=== PATIENT | male | born 1970 | race African-American/Black ===

== ENCOUNTER 2017-06-13 16:04 | Inpatient (IN) | payer MEDICAID, OTHER ==
[~2017-06-13] VITALS: Ht 170.2 cm; Wt 65.3 kg
[~2017-06-13 16:04] MED LIST: GLIP10TA10 PO; LISI10TA5 PO; METF500T4 PO; METO25TA6 PO; Phenytoin PO; RISP1 PO; TEMA15CA PO
[2017-06-13 18:28] LABS: BASOPHILS % 1.1 % (0.0-2.0); EOSINOPHILS % 2.6 % (0.0-5.0); HEMOGLOBIN. 11.3 g/dL (14.0-18.0); LYMPHOCYTES % 34.3 % (20.0-50.0); MEAN CORPUSCULAR HEMOGLOBIN 29.2 pg (28.0-32.0); MEAN CORPUSCULAR VOLUME 82.7 fL (80.0-94.0); MEAN PLATELET VOLUME 6.4 fl (7.4-10.4); MONOCYTES % 8.3 % (2.0-8.0); NEUTROPHILS % 53.7 % (40.0-76.0); PLATELET 275 x1000/uL (130-400); RED BLOOD CELL COUNT 3.87 mill/uL (4.7-6.1); RED CELL DISTRIBUTION WIDTH 14.2 % (11.6-14.6)
[2017-06-13 18:34] LABS: CHLORIDE 107 mEq/L (98-107)
[2017-06-13 18:43] LABS: CARBON DIOXIDE 25 mEq/L (21-32)
[2017-06-13 18:46] LABS: CARBAMAZEPINE < 0.5 ug/mL (4-12)
[2017-06-13] MEDS ORDERED: SODIUM CHLORIDE 0.9% 1,000 ML IV ONE (18:48)
[2017-06-13 18:51] LABS: PHENOBARBITAL < 2.1 ug/mL (15.0-40.0)
[2017-06-13 19:54] LABS: *AMPHETAMINES SCREEN URINE NEGATIVE (NEGATIVE); *BARBITURATES SCREEN URINE NEGATIVE (NEGATIVE); *BENZODIAZEPINES SCREEN URINE NEGATIVE (NEGATIVE); *COCAINE SCREEN URINE NEGATIVE (NEGATIVE); CANNABINOID URINE SCREEN NEGATIVE (NEGATIVE); METHADONE URINE SCREEN NEGATIVE (NEGATIVE); OPIATES URINE SCREEN NEGATIVE (NEGATIVE); PHENCYCLIDINE URINE SCREEN NEGATIVE (NEGATIVE)
[2017-06-13] MEDS ORDERED: IPRATROPIUM/ALBUTEROL 0.5-3(2.5)MG/3ML NEB INH PRN (20:15)
[2017-06-13] MEDS ORDERED: CLONIDINE 0.1MG TABLET PO PRN (20:15)
[2017-06-13] MEDS ORDERED: MAGNESIUM/ALUMINUM HYDROXIDE/SIMETHICONE 30ML UDC PO PRN (20:15)
[2017-06-13] MEDS ORDERED: ONDANSETRON HCL 4MG/2ML VIAL IV PRN (20:15)
[2017-06-13] MEDS ORDERED: ACETAMINOPHEN 325MG TABLET PO PRN (20:15)
[2017-06-13 21:00] VITALS: BP 134/91
[2017-06-13 21:15] VITALS: BP 134/91
[2017-06-13] MEDS: TEMAZEPAM 15MG CAPSULE PO SCH (22:27)
[2017-06-13] MEDS: RISPERIDONE 1MG TABLET PO SCH (22:27)
[2017-06-13] MEDS: SODIUM CHLORIDE 0.9% 1,000 ML IV SCH (23:13)
[2017-06-13] MEDS ORDERED: DEXTROSE 50% WATER 50ML SYRINGE IV PRN (23:15)
[2017-06-14] VITALS: BP 116/72
[2017-06-14 04:00] VITALS: BP 134/72
[2017-06-14] MEDS: BLOOD SUGAR DIAGNOSTIC STRIP TEST SCH ×4 (06:00→21:55)
[2017-06-14 06:16] LABS: BASOPHILS % 0.7 % (0.0-2.0); EOSINOPHILS % 2.9 % (0.0-5.0); HEMATOCRIT. 32.3 % (42.0-52.0); HEMOGLOBIN. 11.1 g/dL (14.0-18.0); LYMPHOCYTES % 38.1 % (20.0-50.0); MEAN CORPUSCULAR HEMOGLOBIN 29.1 pg (28.0-32.0); MEAN CORPUSCULAR VOLUME 84.3 fL (80.0-94.0); MEAN PLATELET VOLUME 6.9 fl (7.4-10.4); MONOCYTES % 11.2 % (2.0-8.0); NEUTROPHILS % 47.1 % (40.0-76.0); PLATELET 243 x1000/uL (130-400); RED BLOOD CELL COUNT 3.83 mill/uL (4.7-6.1); RED CELL DISTRIBUTION WIDTH 14.6 % (11.6-14.6)
[2017-06-14] MEDS: INSULIN LISPRO 100 UNITS/ML SUBCUT SCH ×4 (06:17→21:00)
[2017-06-14] MEDS: GLIPIZIDE 10MG TABLET PO SCH (06:32)
[2017-06-14 06:47] LABS: CARBON DIOXIDE 27 mEq/L (21-32); CHLORIDE 108 mEq/L (98-107)
[2017-06-14 06:59] LABS: CREATINE KINASE 193 IU/L (39-308); CREATINE KINASE MB FRACTION 1.4 ng/mL (0.5-3.6); HDL CHOLESTEROL 61 mg/dL (40-59); LDL CHOLESTEROL 110 mg/dL (5-100); TROPONIN I < 0.02 ng/mL (0.00-0.04)
[2017-06-14 08:00] VITALS: BP 105/63
[2017-06-14] MEDS: METOPROLOL TARTRATE 25MG TABLET PO SCH (09:52)
[2017-06-14] MEDS: METFORMIN HCL 500MG TABLET PO SCH ×2 (09:52→17:09)
[2017-06-14] MEDS: LISINOPRIL 10MG TABLET PO SCH (09:53)
[2017-06-14] MEDS: ENOXAPARIN 40MG/0.4ML SYR SUBCUT SCH (09:55)
[2017-06-14 12:00] VITALS: BP 111/66
[2017-06-14] MEDS: SODIUM CHLORIDE 0.9% 1,000 ML IV SCH (12:46)
[2017-06-14 16:00] VITALS: BP 103/63
[2017-06-14] MEDS: RISPERIDONE 1MG TABLET PO SCH (17:08)
[2017-06-14 20:00] VITALS: BP 101/59
[2017-06-14] MEDS: TEMAZEPAM 15MG CAPSULE PO SCH (21:53)
[2017-06-14] MEDS: ATORVASTATIN CALCIUM 20MG TABLET PO SCH (21:53)
[2017-06-15] VITALS: BP 102/68
[2017-06-15 04:00] VITALS: BP 111/70
[2017-06-15 06:36] LABS: BASOPHILS % 0.9 % (0.0-2.0); HEMATOCRIT. 30.6 % (42.0-52.0); HEMOGLOBIN. 10.7 g/dL (14.0-18.0); LYMPHOCYTES % 33.9 % (20.0-50.0); MEAN CORPUSCULAR VOLUME 82.7 fL (80.0-94.0); MEAN PLATELET VOLUME 6.8 fl (7.4-10.4); MONOCYTES % 10.4 % (2.0-8.0); NEUTROPHILS % 50.8 % (40.0-76.0); PLATELET 251 x1000/uL (130-400); RED CELL DISTRIBUTION WIDTH 14.3 % (11.6-14.6)
[2017-06-15] MEDS: BLOOD SUGAR DIAGNOSTIC STRIP TEST SCH ×4 (07:02→20:42)
[2017-06-15] MEDS: INSULIN LISPRO 100 UNITS/ML SUBCUT SCH ×4 (07:03→20:42)
[2017-06-15] MEDS: GLIPIZIDE 10MG TABLET PO SCH (07:05)
[2017-06-15 07:29] LABS: CARBON DIOXIDE 24 mEq/L (21-32); CHLORIDE 108 mEq/L (98-107)
[2017-06-15 08:00] VITALS: BP 113/53
[2017-06-15] MEDS: METOPROLOL TARTRATE 25MG TABLET PO SCH (08:41)
[2017-06-15] MEDS: METFORMIN HCL 500MG TABLET PO SCH ×2 (08:41→17:26)
[2017-06-15] MEDS: LISINOPRIL 10MG TABLET PO SCH (08:42)
[2017-06-15] MEDS: SODIUM CHLORIDE 0.9% 1,000 ML IV SCH (08:42)
[2017-06-15] MEDS: ENOXAPARIN 40MG/0.4ML SYR SUBCUT SCH (08:42)
[2017-06-15 12:00] VITALS: BP 104/71
[2017-06-15 16:00] VITALS: BP 111/70
[2017-06-15] MEDS: RISPERIDONE 1MG TABLET PO SCH (17:26)
[2017-06-15 19:33] VITALS: BP 109/73
[2017-06-15] MEDS: TEMAZEPAM 15MG CAPSULE PO SCH (20:39)
[2017-06-15] MEDS: ATORVASTATIN CALCIUM 20MG TABLET PO SCH (20:39)
[2017-06-16] VITALS: BP 115/80
[2017-06-16 04:26] VITALS: BP 119/80
[2017-06-16] MEDS: INSULIN LISPRO 100 UNITS/ML SUBCUT SCH ×3 (05:57→16:43)
[2017-06-16] MEDS: BLOOD SUGAR DIAGNOSTIC STRIP TEST SCH ×3 (05:57→16:26)
[2017-06-16] MEDS: GLIPIZIDE 10MG TABLET PO SCH (06:35)
[2017-06-16] MEDS: METFORMIN HCL 500MG TABLET PO SCH ×2 (06:35→16:26)
[2017-06-16 06:53] LABS: BASOPHILS % 0.8 % (0.0-2.0); EOSINOPHILS % 4.4 % (0.0-5.0); HEMOGLOBIN. 10.8 g/dL (14.0-18.0); LYMPHOCYTES % 32.5 % (20.0-50.0); MEAN CORPUSCULAR HEMOGLOBIN 28.8 pg (28.0-32.0); MEAN CORPUSCULAR VOLUME 82.8 fL (80.0-94.0); MEAN PLATELET VOLUME 6.7 fl (7.4-10.4); MONOCYTES % 11.5 % (2.0-8.0); NEUTROPHILS % 50.8 % (40.0-76.0); PLATELET 263 x1000/uL (130-400); RED BLOOD CELL COUNT 3.74 mill/uL (4.7-6.1); RED CELL DISTRIBUTION WIDTH 14.4 % (11.6-14.6)
[2017-06-16 08:00] VITALS: BP 111/65
[2017-06-16 08:25] LABS: CARBON DIOXIDE 27 mEq/L (21-32); CHLORIDE 107 mEq/L (98-107)
[2017-06-16] MEDS: LISINOPRIL 10MG TABLET PO SCH (08:56)
[2017-06-16] MEDS: METOPROLOL TARTRATE 25MG TABLET PO SCH (08:57)
[2017-06-16] MEDS: ENOXAPARIN 40MG/0.4ML SYR SUBCUT SCH (08:57)
[2017-06-16 12:00] VITALS: BP 114/70
[2017-06-16] MEDS ORDERED: PHEN100C4 PO (13:55)
[2017-06-16] MEDS ORDERED: ATOR10TA PO (13:58)
[2017-06-16 15:35] VITALS: BP 119/70
[2017-06-16 16:00] VITALS: BP 115/76
[2017-06-16] MEDS: RISPERIDONE 1MG TABLET PO SCH (16:26)
== END 2017-06-16 19:00 | disposition home or self-care (01) | DRG 58 ==
LOC: ER 16:04 → 5WST 19:14 → ENRESERV 19:26
PROVIDERS: ADMIT Internal Medicine; ATTEND Internal Medicine
DX: R26.0 Ataxic gait (principal); F20.9 Schizophrenia, unspecified; I10 Essential (primary) hypertension; G40.909 Epilepsy, unspecified, not intractable, without status epilepticus; D64.9 Anemia, unspecified; E11.9 Type 2 diabetes mellitus without complications; T42.0X5A Adverse effect of hydantoin derivatives, initial encounter; E78.00 Pure hypercholesterolemia, unspecified; Z86.73 Personal history of transient ischemic attack (TIA), and cerebral infarction without residual deficits; Z91.19 Patient's noncompliance with other medical treatment and regimen; Z79.899 Other long term (current) drug therapy; Y92.89 Other specified places as the place of occurrence of the external cause
CPT/HCPCS: 36415; 70450; 70551; 71010; 80048; 80053; 80061; 80156; 80165; 80184; 80185; 80305; 82550; 82553; 82962; 83036; 83735; 84443; 84484; 85025; 93005; 93970; 97112; 97116; 97162; 97166; 97530; 97535; 99285; G0482; J1650; J1815; J7030

== ENCOUNTER 2020-12-15 09:53 | Emergency (ER) | payer MEDICAID, OTHER ==
[~2020-12-15] VITALS: Ht 165.1 cm; Wt 77.0 kg
[~2020-12-15 09:53] MED LIST changes: +ATOR10TA PO; +LISI10TA26 PO; -LISI10TA5 PO; +METF-414 PO; -METF500T4 PO; +PHEN100C4 PO; -Phenytoin PO
[2020-12-15] MEDS ORDERED: SODIUM CHLORIDE 0.9% 1,000 ML IV ONE ×2 (10:30→12:15)
[2020-12-15] MEDS ORDERED: SILVER SULFADIAZINE 1% CREAM 25GM TOP ONE (10:30)
[2020-12-15 11:01] LABS: CHLORIDE 100 mEq/L (98-107)
[2020-12-15 11:07] LABS: PROTHROMBIN TIME 11.2 sec (9.6-11.0)
[2020-12-15 11:10] LABS: BETA HYDROXYBUTYRATE 0.6 mMol/L (0.0-0.3)
[2020-12-15 11:13] LABS: CLARITY URINE CLEAR (CLEAR); COLOR URINE YELLOW (YELLOW); KETONES URINE 3+ (NEGATIVE); LEUKOCYTE ESTERASE URINE NEGATIVE (NEGATIVE); NITRITE URINE NEGATIVE (NEGATIVE); OCCULT BLOOD URINE NEGATIVE (NEGATIVE); PROTEIN URINE NEGATIVE (NEGATIVE); SPECIFIC GRAVITY URINE 1.027 (1.005-1.030)
[2020-12-15 11:30] LABS: *AMPHETAMINES SCREEN URINE NEGATIVE (NEGATIVE); *BARBITURATES SCREEN URINE NEGATIVE (NEGATIVE); *COCAINE SCREEN URINE NEGATIVE (NEGATIVE)
[2020-12-15 11:31] LABS: BASOPHILS % 0.5 % (0.0-2.0); EOSINOPHILS % 0.2 % (0.0-5.0); HEMATOCRIT. 34.6 % (42.0-52.0); HEMOGLOBIN. 11.7 g/dL (14.0-18.0); LYMPHOCYTES % 11.7 % (20.0-50.0); MEAN CORPUSCULAR HEMOGLOBIN 26.4 pg (28.0-32.0); MEAN CORPUSCULAR VOLUME 78.1 fL (80.0-94.0); MEAN PLATELET VOLUME 6.6 fl (7.4-10.4); MONOCYTES % 8.6 % (2.0-8.0); PLATELET 363 x1000/uL (130-400); RED BLOOD CELL COUNT 4.42 mill/uL (4.7-6.1); RED CELL DISTRIBUTION WIDTH 14.1 % (11.6-14.6)
[2020-12-15 11:31] LABS: *BENZODIAZEPINES SCREEN URINE NEGATIVE (NEGATIVE); CANNABINOID URINE SCREEN NEGATIVE (NEGATIVE); METHADONE URINE SCREEN NEGATIVE (NEGATIVE); OPIATES URINE SCREEN NEGATIVE (NEGATIVE); PHENCYCLIDINE URINE SCREEN NEGATIVE (NEGATIVE)
[2020-12-15] MEDS ORDERED: SILV20CR13 TP (12:16)
[2020-12-15 12:54] VITALS: BP 151/95
== END 2020-12-15 13:12 | disposition home or self-care (01) ==
LOC: ER 09:53
DX: T22.242A Burn of second degree of left axilla, initial encounter (principal); X08.8XXA Exposure to other specified smoke, fire and flames, initial encounter; R00.0 Tachycardia, unspecified; Y93.E8 Activity, other personal hygiene; Y92.012 Bathroom of single-family (private) house as the place of occurrence of the external cause; E11.9 Type 2 diabetes mellitus without complications; I10 Essential (primary) hypertension; E78.00 Pure hypercholesterolemia, unspecified; F20.9 Schizophrenia, unspecified; G40.909 Epilepsy, unspecified, not intractable, without status epilepticus
CPT/HCPCS: 36415; 70450; 71045; 80053; 80305; 81003; 82010; 84484; 85025; 85610; 93005; 96360; 96361; 99285; J7030